=== PATIENT | female | born 1970 | race Hispanic/Latino ===

== ENCOUNTER 2022-06-15 22:42 | Emergency (ER) | payer OTHER, SELFPAY ==
[~2022-06-15] VITALS: Ht 165.1 cm; Wt 88.6 kg
[2022-06-15] MEDS ORDERED: ACETAMINOPHEN 500 MG TABLET PO ONE (23:30)
[2022-06-15] MEDS ORDERED: ENAL20TA60 PO (23:54)
[2022-06-15] MEDS ORDERED: NIRM1TAB5 PO (23:54)
[2022-06-15] MEDS ORDERED: IBUP-1493 PO (23:54)
[2022-06-15 23:55] VITALS: BP 156/75
[2022-06-16] MEDS ORDERED: LISINOPRIL 20 MG TABLET PO SCH
== END 2022-06-15 23:57 | disposition home or self-care (01) ==
LOC: EDH 22:42
DX: U07.1 COVID-19 (principal); I10 Essential (primary) hypertension
CPT/HCPCS: 99283; 87635; 87880; 87804 ×2; C9803